=== PATIENT | female | born 1945 | race Caucasian/White ===

== ENCOUNTER 2022-05-01 11:01 | Emergency (ER) | payer OTHER ==
[2022-05-01 11:18] VITALS: RESP 17; TEMP 98; BMI 33.3
[2022-05-01] MEDS ORDERED: METOCLOPRAMIDE HCL 10 MG TABLET (FP) PO ONE (12:57)
[2022-05-01] MEDS ORDERED: ACETAMINOPHEN 325 MG TABLET (FP) PO ONE (12:57)
[2022-05-01 14:46] VITALS: BP 139/74; PULSE 54
== END 2022-05-01 14:25 | disposition home or self-care (01) ==
LOC: JER 11:01
DX: G44.219 Episodic tension-type headache, not intractable (principal)
CPT/HCPCS: 70450-TC; 99284-25

== ENCOUNTER 2022-06-27 14:05 | Emergency (ER) | payer OTHER ==
[2022-06-27 14:32] VITALS: BP 168/97; PULSE 57; RESP 20; TEMP 98; BMI 30.2
[2022-06-27] MEDS ORDERED: MECLIZINE HCL 25 MG TABLET (FP) PO ONE (14:44)
[2022-06-27] MEDS ORDERED: ACETAMINOPHEN 500 MG TABLET (FP) PO ONE (14:44)
[2022-06-27] MEDS ORDERED: SODIUM CHLORIDE 0.9% 500 ML INFUS.BAG IV ONE (14:52)
[2022-06-27] MEDS ORDERED: MECLIZINE HCL 25 MG TABLET (FP) ONE (15:21)
[2022-06-27] MEDS ORDERED: ACETAMINOPHEN 325 MG TABLET (FP) ONE (15:21)
[2022-06-27 15:48] LABS: BASO % 0.7 % (0-2.0); HEMATOCRIT 38.4 % (32.4-45.2); HEMOGLOBIN 12.6 GM/dL (10.7-15.3); LYMPH % 27.4 % (8-40); MCH 30.9 pg (25.7-33.7); MEAN CELL VOLUME 93.8 fl (80-96); MEAN PLT VOLUME 8.7 fl (7.5-11.1); MONO % 5.8 % (3.8-10.2); NEUT % 66.1 % (42.8-82.8); PLATELET COUNT 342 10^3/uL (134-434); RBC 4.09 M/mm3 (3.60-5.2); RDW 15.7 % (11.6-15.6); WHITE BLOOD COUNT 6.7 K/mm3 (4.0-10.0)
[2022-06-27 15:49] LABS: PH,URINE 8.5 (5.0-8.0); URINE APPEARANCE CLEAR; URINE BILIRUBIN NEGATIVE (NEGATIVE); URINE COLOR YELLOW; URINE GLUCOSE (UA) NEGATIVE (NEGATIVE); URINE KETONE NEGATIVE (NEGATIVE); URINE LEUK ESTERASE NEGATIVE (NEGATIVE); URINE NITRITE NEGATIVE (NEGATIVE); URINE PROTEIN NEGATIVE (NEGATIVE); URINE UROBILINOGEN 0.2 mg/dL (0.2-1.0)
[2022-06-27 16:12] LABS: CHLORIDE 113 mmol/L (98-107); SODIUM 145 mmol/L (136-145)
[2022-06-27 16:14] LABS: CALCIUM 9.5 mg/dL (8.5-10.1)
[2022-06-27 16:15] LABS: ANION GAP 4 MMOL/L (8-16); BLOOD UREA NITROGEN 12.8 mg/dL (7-18); CO2 28 mmol/L (21-32); GLUCOSE,RANDOM 97 mg/dL (74-106)
[2022-06-27 16:16] LABS: ALBUMIN 3.4 g/dl (3.4-5.0); MAGNESIUM 2.2 mg/dL (1.8-2.4)
[2022-06-27 16:18] LABS: CREATININE 0.9 mg/dL (0.55-1.3); SGOT/AST 21 U/L (15-37); SGPT/ALT 20 U/L (13-61)
[2022-06-27 16:20] LABS: BILIRUBIN,TOTAL 0.6 mg/dL (0.2-1); TOT PROT 6.5 g/dl (6.4-8.2)
[2022-06-27 16:21] LABS: ALK PHOS 95 U/L (45-117)
== END 2022-06-27 18:11 | disposition home or self-care (01) ==
LOC: JER 14:05
DX: R42 Dizziness and giddiness (principal)
CPT/HCPCS: 0241U-QW; 36415; 70450-TC; 70496-TC; 71045-TC-FY; 80053; 81003; 83735; 84484; 85025; 87086; 87186; 93005; 93010; 99285-25; Q9967

== ENCOUNTER 2022-07-16 15:18 | Emergency (ER) | payer OTHER ==
[2022-07-16 15:36] VITALS: PULSE 62; RESP 18; TEMP 98.2; BMI 30.2
[2022-07-16] MEDS ORDERED: ONDANSETRON 4 MG/2 ML VIAL IVPUSH ONE (17:16)
[2022-07-16] MEDS ORDERED: ACETAMINOPHEN 1000 MG/100 ML BAG IVPB ONE (17:16)
[2022-07-16] MEDS ORDERED: ONDANSETRON 4 MG/2 ML VIAL ONE (17:27)
[2022-07-16] MEDS ORDERED: ACETAMINOPHEN INJECTION 100 ML IVPB ONE (17:27)
[2022-07-16] MEDS ORDERED: MECLIZINE HCL 25 MG TABLET (FP) PO ONE (17:36)
[2022-07-16 18:14] VITALS: BP 158/82
[2022-07-16] MEDS ORDERED: MECLIZINE HCL 25 MG TABLET (FP) ONE (18:23)
== END 2022-07-16 19:01 | disposition home or self-care (01) ==
LOC: JER 15:18
DX: R42 Dizziness and giddiness (principal); R51.9 Headache, unspecified; R10.84 Generalized abdominal pain
CPT/HCPCS: 99283-25